=== PATIENT | male | born 1990 | race Caucasian/White ===

== ENCOUNTER → 2021-04-03 | Outpatient (CLI) | payer BC, SELFPAY | END | disposition home or self-care (01) | PROVIDERS: PCP Preventive Medicine Occupational Medicine; Visit Provider Physician Assistant Medical | DX: Z11.52 Encounter for screening for COVID-19 (principal) | CPT/HCPCS: 87635; U0003; U0005 ==

== ENCOUNTER → 2025-03-14 | Outpatient (CLI) | payer BC, SELFPAY ==
[2025-03-14 16:51] LABS: Glucose, Dipstick Normal (Normal); Ketone-Dipstick Negative (Negative); Leukocyte Esterase-Dipstick Negative /ul (Negative); Nitrite-Dipstick Negative (Negative); Occult Blood-Urine Negative /ul (Negative); Protein-Dipstick Negative (Negative); Specific Gravity, Urine 1.010 (1.002-1.030); Urine Bilirubin Dipstick Negative (Negative)
[2025-03-14 16:54] LABS: Color, Urine Straw (Yellow)
[2025-03-14 16:58] LABS: Hematocrit 49.0 % (40-54); Hemoglobin 16.4 g/dL (13.0-16.5); Immature Granulocytes Count 0.030 X10^3/uL (0.0-0.0); Mean Corp Hgb Conc 33.5 g/dL (32-36); Mean Corpuscular Volume 86.9 fL (80-94); Mean Platelet Vol. 9.2 fl (6.2-12.0); NRBC Flagged by Analyzer 0 % (0-5); Platelet Count 244 K/mm3 (150-450); RBC Distribution Width CV 12.2 % (11.6-14.6); RBC Distribution Width SD 38.7 fl (35.1-43.9); Red Blood Count 5.64 M/mm3 (4.6-6.2); White Blood Count 6.7 K/mm3 (4.4-11.0)
[2025-03-14 17:30] LABS: AST(SGOT) 26 U/L (<=37); Alanine Aminotransfer ALT/SGPT 31 U/L (<=46); Albumin, Serum 5.0 g/dL (3.5-5.0); Alkaline Phosphatase 63 U/L (40-129); Anion Gap 13 (5-15); BUN 18 mg/dL (4-19); BUN/Creat Ratio 18.0 RATIO (10-20); Calcium,Total 10.3 mg/dL (7.6-11.0); Carbon Dioxide 25.1 mmol/L (21.0-32.0); Chloride 102 mmol/L (98-108); Cholesterol 201 mg/dL (<=200); Globulin 2.8 g/dL (2.2-4.2); Glucose 98 mg/dL (70-99); Low Density Lipoprotein Calc. 136 mg/dL; Magnesium 2.5 mg/dL (1.5-2.2); Potassium 4.4 mmol/L (3.3-5.1); T4 Total, Thyroxin 8.3 ug/dL (4.5-12.1); Triglycerides 108 mg/dL; Very Low Density Lipoprotein 22 mg/dL (5-40); Vitamin B12 941 pg/mL (180-914); Vitamin D,25 Hydroxy 42.5 ng/mL (30-100); cholesterol:hdl ratio screen 4.40
== END | disposition home or self-care (01) ==
PROVIDERS: PCP Nurse Practitioner Family; Referring Provider Nurse Practitioner Family; Visit Provider Nurse Practitioner Family
DX: Z00.00 Encounter for general adult medical examination without abnormal findings (principal); F41.1 Generalized anxiety disorder
CPT/HCPCS: 36415; 80053; 80061; 81002; 82306; 82607; 83735; 84436; 84443; 85025; 86376; 86800

== ENCOUNTER → 2025-03-19 | Outpatient (CLI) | payer BC, SELFPAY ==
--- NOTE | 2025-03-19 07:26 | EKG12_ITS ---
Test Reason : PALPS Blood Pressure : */* mmHG Vent. Rate : 63 BPM Atrial Rate : 63 BPM P-R Int : 150 ms QRS Dur : 86 ms QT Int : 402 ms P-R-T Axes : 57 73 56 degrees QTcB Int : 411 ms Normal sinus rhythm Normal ECG Confirmed by JAZ HILLMAN, RUBEN ([id number]), commercial production editor VÍCTOR FERRER ([id number]) on 03/20/2025 1:29:12 PM Referred By: Praneeth Torres Confirmed By: RUBEN SEBASTIAN MD
--- OUTSIDE RECORDS SUMMARY | 2025-03-19 07:43 | XMS RPT_ITS | CCD ---
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 Name Role Phone Niko Barboza MD Primary Care Provider Ezekiel Portillo Referring Unavailable Ezekiel Portillo Primary Care Unavailable Jeffrey Valencia Attending Unavailable RENETTA HIGGINS Attending Unavailable NIKO BARBOZA Primary Care Unavailab Niko Courtney MD Primary Care Provider Medications Current Medications Medication Drug Class(es) Dates Sig (Normalized) Sig (Original) sertraline 50 mg oral tablet (7 sources) Serotonin Reuptake Inhibitor Start: 06-15-2022 End: 09-30-2022 take 1 tablet by mouth once daily sertraline (ZOLOFT) 50 mg tablet Indications: Anxiety with depression Take 1 tablet by mouth once daily. 90 tablet 0 06/15/2022 09/30/2022 Discontinued (Course of therapy completed) Start: 04-08-2021 End: 06-12-2022 take 1 tablet by mouth once daily sertraline (ZOLOFT) 50 mg tablet Indications: Anxiety with depression Take 1 tablet by mouth once daily. 90 tablet 3 09/26/2021 06/12/2022 Discontinued Comment on above: Take 1 tablet by edita th once daily. Problems Problem Classification Problem Date Documented Da te Episodic/Chronic Anxiety disorders (4 sources) Mixed anxiety and depressive disorder; Translations: [Other specified anxiety disorders] Chronic Hemorrhoids (1 source) External hemorrhoids; Translations: [Residual hemorrhoidal skin tags] 01-13-2024 Episodic Malaise and fatigue (1 source) Fatigue; Translations: [Other fatigue] Episodic Results Test Name Value Interpretation Reference Range Facil ity CNOVon 01-13-2024 CNOV Office Visit (FAMPWS ) JACOB VILLA ([id number]) 1990 M Date Time Provider Department 01/13/24 8:00 AM RENETTA HIGGINS During your visit today, we recorded the following information about you: Pulse Respiration Blood pressure Weight 75/minute 14/minute 147/77 83 kg Renetta Higgins APRN.LABOR MEDIATOR 01/13/2024 8:20 AM Signed Chief Complaint Patient presents with: Rectal Problem: X 1 week HPI Jacob Villa is a 33 year old male who presents here today for Above Complaints.. Patient presents for concerns for hemorrhoid. Patient reports he has changed his diet in the past couple of months and about a week ago began having rectal pain and when he wipes he can feel a hard spot that is tender. Patient reports he started using OTC cream yesterday. Past medical history, appointments, medications, allergies reviewed. Previous Medical History PAST MEDICAL HISTORY Diagnosis Date Left ACL tear 2007 s/p repair Previous Surgical History PAST SURGICAL HISTORY Procedure Laterality Date PAST SURGICAL HISTORY OF Left 2007 ACL removal and repair Family History FAMILY HISTORY Problem Relation Age of Onset Depression Father Coronary Artery Disease Paternal Grandfather [place] age 39 Diabetes Maternal Grandfather Patient Allergies ALLERGIES No Known Allergies Current Medications No current outpatient medications on file prior to visit. No current facility-administered medications on file prior to visit. Social History Social History Tobacco Use Smoking status: Never Smokeless tobacco: Never Vaping Use Vaping status: Never Used Substance Use Topics Alcohol use: Yes Alcohol/week: 2.0 standard drinks of alcohol Types: 2 Cans of Beer (12oz) per week Drug use: No Review of Symptoms REVIEW OF SYSTEMS SEE HPI EXAM: BP 147/77 Pulse 75 Resp 14 Wt 83 kg (183 lb) BMI 26.20 kg/m? General Appearance: Well appearing, alert, in no acute distress, well-hydrated, well nourished.. Rectal: Positive findings: thrombosed external hemorrhoid. The sensitive examination was discussed with the Patient or Patient's Authorized Discovery Manager. As applicable, any other physician, advance practice provider, medical student, or other health professional student that will be observing or involved in the sensitive examination for educational or training purposes was discussed with the Patient or Authorized Discovery Manager. The Patient or Authorized Discovery Manager has agreed to proceed with the sensitive examination. (Sensitive examination includes inspection and/or palpation of the breasts, pelvis, prostate and anorectal regions) Health Maintenance List Depression Screening Never done Anxiety Screening Never done Hepatitis C Screening Never done HIV Screening Never done Influenza Vaccine(1) due on 12/05/2023 Covid-19 Vaccine( - season) due on 12/05/2023 DTaP,Tdap,Td Vaccine(7 - Td or Tdap) due on 11/05/2024 Hepatitis B Vaccine Completed HPV Vaccine Aged Out ASSESSMENT/PLAN: 1. External hemorrhoid - ICD9: 455.3, ICD10: K64.4 -Encouraged patient to use preparation H and witch kriss pads. Return if no improvement or if hemorrhoid becomes larger or is bleeding. Renetta Higgins, LUISA.LABOR MEDIATOR Allergies As of Date: 01/13/2024 (No Known Allergies) Date Reviewed: 01/13/2024 Reviewed by: Heidy Glez MA - Fully Assessed Reason for Visit: Rectal Problem [93] Cmt: X 1 week Primary Visit Diagnosis:External hemorrhoid [K64.4] Problem List As Of Date: 01/13/2024 (None) Encounter Status:Closed by RENETTA HIGGINS on 01/13/24 Normal [facility] Visit Reporton 0 05-20-2023 Urgent Care Visit Report [facility] [address], [address] [place] [address] OFFICE VISIT Date of Service: 05/20/23 MR#: [id number] Acct: [id number] Name: JACOB VILLA Rep #: [id number] : 1990 Provider: MACIEL Merida Age/Sex: 32/M Location: [facility] [place] Status: Signed Intake Vital Signs 03/27/21 09:35 05/20/23 09:07 Height 5 ft 11.5 in 5 ft 11 in Weight: 195 lb BMI 27.1 BP 142/96 H Blood Pressure Location Lt brachial Position Sitting Respiration 16 Pulse 89 Pulse Source Monitor Temp 97.5 F L Temp Source Temporal Pulse Oximetry (%) 99 Oxygen Delivery Method room air Intake Visit Reasons: SORE THROAT Chief Complaint: SORE THROAT Research Professional Required: No Accompanied by: Self Is patient in pain?: No Allergies No Known Allergies Allergy (Verified 05/20/23 09:07) Medications NK 05/20/23 [History Confirmed 05/20/23] PFSH Medical History COVID-19 Social History Smoking Status: Unknown if ever smoked HPI HPI Chief Complaint: SORE THROAT Details: JACOB VILLA, is a 32 M who presents to the office today for complaint of sore throat for the past 2 days. Patient does state that his and daughter both are currently being treated for strep at home. No fever, chills, sweats. No nausea, vomiting or diarrhea. No other associated symptoms or alleviating/aggravatin g factors. ROS Const Constitutional: No other (as above) Exam Const General: cooperative and healthy appearing [facility] Head: normal to inspection Ears: hearing grossly normal bilaterally, TM's normal bilaterally and EAC's normal Nose: external nose normal and nasal discharge clear Mouth: oral mucosae normal Throat: abnormal tonsil bilaterally Resp Effort Inspection: normal respiratory effort Auscultation: Bilateral: Clear to Auscultation Cardio Palpation: normal PMI Rate: regular rate Rhythm: regular rhythm Neuro General: patient alert and CN's II-XI intact bilaterally Psych Appearance: grossly normal Mental Status: mental status grossly normal Coding Level of Care Code Off vis,est,level 3 Diagnoses Acute pharyngitis J02.9 Assessment and Plan Assessment and Plan (1) Acute pharyngitis: Status: Acute Plan: Patient tested negative for strep in the office today using [facility] strep testing. Encouraged to get plenty of rest, drink lots of clear liquids, and use Tylenol or Ibuprofen (unless contraindicated) for fever and comfort. Patient also educated on other symptomatic management techniques. To be seen in 7-10 days if no improvement; sooner if worsening of symptoms. Patient advised of potential red flags and when appropriate to report to the ED. Patient verbalized understanding and agreement with all the above. Orders: Orders POC [facility] Rapid Strep A Today 05/20/23928 Date Jeffrey Mcguire Signature: Date (if applicable) CC: Normal [facility] Vital Signs Date Time Vital Sign Value Performing Clinician Faci lity 01-13-2024 08:03-0400 Body mass index (BMI) [Ratio] 26.2 kg/m2 Renetta Higgins APRN.LABOR MEDIATOR Work Phone: [facility] 01-13-2024 08:03-0400 Body weight 83.01 kg Renetta Higgins APRN.LABOR MEDIATOR Work Phone: [facility] 01-13-2024 08:03-0400 Diastolic blood pressure 77 mm[Hg] Renetta Higgins SUPERVISOR DIALS.LABOR MEDIATOR Work Phone: [facility] 01-13-2024 08:03-0400 Heart rate 75 /min Renetta Higgins SUPERVISOR DIALS.LABOR MEDIATOR Work Phone: [facility] 01-13-2024 08:03-0400 Respiratory rate 14 /min Renetta Higgins SUPERVISOR DIALS.LABOR MEDIATOR Work Phone: [facility] 01-13-2024 08:03-0400 Systolic blood pressure 147 mm[Hg] Renetta Higgins SUPERVISOR DIALS.LABOR MEDIATOR Work Phone: [facility] 09-30-2022 07:43-0400 Body height 178 cm Jennifer Vizcarra SUPERVISOR DIALS.LABOR MEDIATOR Work Phone: [facility] 09-30-2022 07:43-0400 Body weight 89.99 kg Jennifer Vizcarra SUPERVISOR DIALS.LABOR MEDIATOR Work Phone: [facility] 09-30-2022 07:43-0400 Diastolic blood pressure 80 mm[Hg] Jennifer Vizcarra SUPERVISOR DIALS.LABOR MEDIATOR Work Phone: [facility] 09-30-2022 07:43-0400 Heart rate 55 /min Jennifer Podlogar SUPERVISOR DIALS.LABOR MEDIATOR Work Phone: [facility] 09-30-2022 07:43-0400 Respiratory rate 16 /min Jennifer Podlogar SUPERVISOR DIALS.LABOR MEDIATOR Work Phone: [facility] 09-30-2022 07:43-0400 SaO2% (BldA) [Mass fraction] 99 % Jennifer Podlogar SUPERVISOR DIALS.LABOR MEDIATOR Work Phone: [facility] 09-30-2022 07:43-0400 Systolic blood pressure 116 mm[Hg] Jennifer Podlogar SUPERVISOR DIALS.LABOR MEDIATOR Work Phone: [facility] 09-26-2021 08:48-0400 Body weight 86.27 kg Jennifer Podlogar SUPERVISOR DIALS.LABOR MEDIATOR Work Phone: [facility] 09-26-2021 08:48-0400 Diastolic blood pressure 76 mm[Hg] Jennifer Podlogar SUPERVISOR DIALS.LABOR MEDIATOR Work Phone: [facility] 09-26-2021 08:48-0400 Heart rate 60 /min Jennifer Podlogar SUPERVISOR DIALS.LABOR MEDIATOR Work Phone: [facility] 09-26-2021 08:48-0400 Respiratory rate 18 /min Jennifer Podlogar SUPERVISOR DIALS.LABOR MEDIATOR Work Phone: [facility] 09-26-2021 08:48-0400 SaO2% (BldA) [Mass fraction] 98 % Jennifer Podlogar SUPERVISOR DIALS.LABOR MEDIATOR Work Phone: [facility] 09-26-2021 08:48-0400 Systolic blood pressure 124 mm[Hg] Jennifer Podlogar SUPERVISOR DIALS.LABOR MEDIATOR Work Phone: [facility] Encounters Encounter Date Encounter Type Care Provider Facility Start: 01-13-2024 End: 01-13-2024 ambulatory RENETTA HIGGINS Facility:[facility] Start: 01-13-2024 End: 01-13-2024 Patient encounter procedure Renetta Higgins SUPERVISOR DIALS.LABOR MEDIATOR Work Phone: [facility] Comment on above: External hemorrhoid (Primary Dx) Start: 05-20-2023 End: 05-20-2023 ambulatory [facility] Facility:[facility] Start: 09-30-2022 End: 09-30-2022 Patient encounter procedure Jennifer Podlogar SUPERVISOR DIALS.FRANCES Work Phone: [facility] Comment on above: Annual physical exam (Primary Dx); Fatigue, unspecified type; Anxiety with depression Start: 06-12-2022 ambulatory Jennifer Podlogar SUPERVISOR DIALS.LABOR MEDIATOR Work Phone: [facility] Comment on above: medication Start: 09-26-2021 End: 09-26-2021 Patient encounter procedure Jennifer Podlogar SUPERVISOR DIALS.LABOR MEDIATOR Work Phone: [facility] Comment on above: Anxiety with depress ion Start: 07-24-2021 Refill Jennifer Podlogar SUPERVISOR DIALS.FRANCES Work Phone: [facility] Comment on above: Refill Request Procedures Date Procedure Procedure Detail Performing Clinician Start: 09-25-2021 Adult depression screening assessment Jennifer Podlogar SUPERVISOR DIALS.FRANCES Work Phone: Start: 03-24-2021 Adult depression screening assessment Jennifer Podlogar SUPERVISOR DIALS.LABOR MEDIATOR Work Phone: Plan of Treatment Date Care Activity Detail Author Start: 11-05-2024 Urine microalbumin profile DTaP,Tdap,Td Vaccine (7 - Td or Tdap) [facility] Start: 12-05-2023 Covid-19 Vaccine ( season) Covid-19 Vaccine ( season) [facility] Start: 12-05-2023 Influenza vaccination Influenza Vacc ine (#1) [facility] Start: 10-01-2023 COVID-19 VACCINE (3 - Booster for Pfizer series) COVID-19 VACCINE (3 - Booster for Pfizer series) [facility] Comment on above: Postponed from 02/17 (Declined at this time) Start: 10-01-2023 HEPATITIS C SCREENING HEPATITIS C AK GERTRUDE [facility] Comment on above: Postponed from 10/28 (Declined at this time) Start: 10-01-2023 HIV SCREENING HIV SCREENING [facility] Comment on above: Postponed from 10/28 (Declined at this time) Start: 12-04-2022 Influenza vaccination INFLUENZ A (Season Ended) [facility] Start: 09-30-2022 End: 11-30-2022 CBC W Auto Differential panel - Blood CBC + DIFF Lab Routine Annual physical exam Expected: 09/30/2022, Expires: 11/30/2022 [facility] Work Phone: Comment on above: Expected: 09/30/2022 , Expires: 11/30/2022 Start: 09-30-2022 End: 11-30-2022 Comprehensive metabolic 2000 panel - Serum or Plasma COMP METABOLIC PANEL Lab Routine Annual physical exam Expected: 09/30/2022, Expires: 11/30/2022 [facility] Work Phone: Comment on above: Expected: 09/30/2022 , Expires: 11/30/2022 Start: 09-30-2022 End: 11-30-2022 Lipid 1996 panel - Serum or Plasma LIPID PANEL BASIC Lab Routine Annual physical exam Expected: 09/30/2022, Expires: 11/30/2022 [facility] Work Phone: Comment on above: Expected: 09/30/2022 , Expires: 11/30/2022 Start: 09-30-2022 End: 11-30-2022 Thyrotropin [Units/volume] in Serum or Plasma TSH BLD Lab Routine Fatigue, unspecified type Expected: 09/30/2022, Expires: 11/30/2022 [facility] Work Phone: Comment on above: Expected: 09/30/2022 , Expires: 11/30/2022 Start: 09-25-2022 Adult depression screening assessment DEPRESSION SCREENING [facility] Start: 04-05-2022 DEPRESSION ASSESSMENT DEPRESSION ASS ESSMENT [facility] Start: 03-24-2022 Adult depression screening assessment DEPRESSION SCREENING [facility] Start: 12-04-2021 Influenza vaccination C [facility] Start: 05-25-2021 COVID-19 VACCINE (3 - Booster for Pfizer series) COVID-19 VACCINE (3 - Booster for Pfizer series) [facility] Start: 02-17-2021 COVID-19 VACCINE (3 - Booster for Pfizer series) COVID-19 VACCINE (3 - Booster for Pfizer series) [facility] Start: 2008 Urine microalbumin profile DTAP,TDAP,TD (1 - Tdap) [facility] Start: 10-29-2007 Anxiety Screening Anxiety Screening [facility] Start: 10-29-2007 Depression Screening Depression Scre ening [facility] Start: 10-29-2007 HEPATITIS C SCREENING HEPATITIS C [facility] Start: 10-29-2007 Hepatitis C screening Hepatitis C [facility] Start: 10-29-2007 HIV SCREENING HIV SCREENING [facility] Start: 10-29-2007 HIV screening HIV Screening [facility] Start: 1990 HEPATITIS B (1 of 3 - 3-dose series) HEPATITIS B (1 of 3 - 3-dose series) [facility] Immunizations Immunization Date Immunization Notes Care Provider Edmundo camilo 12-23-2020 COVID-19 vaccine, ag e 12+ yr (PFIZER-BIONTECH - PURPLE TOP) Jennifer Podlogar SUPERVISOR DIALS.[facility] Work Phone: [facility] 12-02-2020 COVID-19 vaccine, ag e 12+ yr (PFIZER-BIONTECH - PURPLE TOP) Jennifer Podlogar SUPERVISOR DIALS.LABOR MEDIATOR Work Phone: [facility] 02-10-2020 influenza, injectabl e, quadrivalent, contains preservative Jennifer Podlogar SUPERVISOR DIALS.LABOR MEDIATOR Work Phone: [facility] Work Phone: 02-10-2020 influenza virus vacc ine, unspecified formulation Renetta Higgins SUPERVISOR DIALS.LABOR MEDIATOR Work Phone: [facility] 01-25-2019 influenza virus vacc ine, unspecified formulation Jennifer Podlogar SUPERVISOR DIALS.LABOR MEDIATOR Work Phone: [facility] 02-10-2018 influenza, injectabl e, quadrivalent, preservative free Jennifer Podlogar SUPERVISOR DIALS.LABOR MEDIATOR Work Phone: [facility] 01-26-2009 influenza virus vacc ine, unspecified formulation Jennifer Vizcarra SUPERVISOR DIALS.FRANCES Work Phone: [facility] 11-16-2008 meningococcal polysaccharide vaccine (MPSV4) Jennifer Vizcarra APRN.FRANCES Work Phone: [facility] 11-16-2008 tuberculin skin test ; purified protein derivative solution, intradermal Renetta Higgins APRN.FRANCES Work Phone: [facility] Payers Date Payer Category Payer Self-pay 2023 Unknown [id number] 2020 Unknown ANTHEM BLUE CARD PPO OOS [id number] 2020-Present [phone] [address] [place] [address] PPO [id number] 2020 Unknown ANTHEM BLUE CARD PPO OOS [id number] 2020-Present [phone] [address] [place] [address] PPO [id number] 2020 Unknown [id number] Unknown [id number] Social History Date Type Detail Facility Start: 01-22-2017 End: 09-30-2022 Tobacco smoking status INIS Never smoked tobacco [facility] Start: 02-28-2020 End: 09-30-2022 Alcohol intake Current drinker of alcohol (finding) [facility] Start: 02-28-2020 End: 03-10-2020 Alcohol intake [facility] Start: 03-24-2021 End: 09-29-2022 History SDOH Alcohol Frequency 2 [facility] Start: 03-24-2021 End: 09-29-2022 History SDOH Alcohol Std Drinks 1 [facility] Start: 03-24-2021 End: 09-29-2022 History SDOH Social Connections Jew 3 [facility] Start: 03-24-2021 End: 09-29-2022 History SDOH Financial 5 [facility] Start: 04-06-2019 Education 17 [facility] Start: 1990 Sex Assigned At Male [facility] Work Phone: Start: 01-22-2017 End: 09-30-2022 Tobacco use and exposure Smokeless tobacco non-user [facility] Work Phone: Start: 09-29-2022 History SDOH Alcohol Std Drinks 0 [facility] Start: 03-10-2020 End: 09-29-2022 Social connection and isolation panel [facility] Do you belong to any clubs or organizations such as lutheran groups, unions, fraternal or athletic groups, or school groups? No [facility] Are you now , , , , never or living with a partner? [facility] How often to you hav e a drink containing alcohol? Monthly or less [facility] How many standard dr inks containing alcohol do you have on a typical day? Patient does not drink [facility] How often do you hav e 6 or more drinks on 1 occasion? Never [facility] Do you feel stress - tense, restless, nervous, or anxious, or unable to sleep at night because your mind is troubled all the time - these days [OSQ] To some extent [facility] (I/We) worried whedemarcus er (my/our) food would run out before (I/we) got money to buy more. Never true [facility] Start: 04-06-2019 Gender identity Identifies as male gender (finding) [facility] Start: 04-06-2019 Sexual orientation Heterosexual (finding) [facility] Clinical Notes 07-24-2021 to 01-13-2024 Renetta Higgins APRN.CNP - 01/13/2024 8:07 AM MARITZATJuerik Vizcarra APRN.CNP - 09/30/2022 7:26 AM EDTTelephone Encounter - Iqra Meehan LPN - 06/12/2022 10:19 AM EST Note Date & Type Note Facility 01-13-2024 Note HNO ID: [id number] Author: RENETTA HIGGINS APRN.CNP Service: ? Author Type: Nurse Practitioner Type: Progress Notes Filed: 01/13/2024 08:20 Note Text: Chief Complaint Patient presents with: Rectal Problem: X 1 week HPI Jacob Villa is a 33 year old male who presents here today for Above Complaints.. Patient presents for concerns for hemorrhoid. Patient reports he has changed his diet in the past couple of months and about a week ago began having rectal pain and when he wipes he can feel a hard spot that is tender. Patient reports he started using OTC cream yesterday. Past medical history, appointments, medications, allergies reviewed. Previous Medical History PAST MEDICAL HISTORY Diagnosis Date Left ACL tear 2007 s/p repair Previous Surgical History PAST SURGICAL HISTORY Procedure Laterality Date PAST SURGICAL HISTORY OF Left 2008 ACL removal and repair Family History FAMILY HISTORY Problem Relation Age of Onset Depression Father Coronary Artery Disease Paternal Grandfather [place] age 39 Diabetes Maternal Grandfather Patient Allergies ALLERGIES No Known Allergies Current Medications No current outpatient medications on file prior to visit. No current facility-administered medications on file prior to visit. Social History Social History Tobacco Use Smoking status: Never Smokeless tobacco: Never Vaping Use Vaping status: Never Used Substance Use Topics Alcohol use: Yes Alcohol/week: 2.0 standard drinks of alcohol Types: 2 Cans of Beer (12oz) per week Drug use: No Review of Symptoms REVIEW OF SYSTEMS SEE HPI EXAM: BP 147/77 Pulse 75 Resp 14 Wt 83 kg (183 lb) BMI 26.20 kg/m? General Appearance: Well appearing, alert, in no acute distress, well-hydrated, well nourished.. Rectal: Positive findings: thrombosed external hemorrhoid. The sensitive examination was discussed with the Patient or Patient's Authorized Discovery Manager. As applicable, any other physician, advance practice provider, medical student, or other health professional student that will be observing or involved in the sensitive examination for educational or training purposes was discussed with the Patient or Authorized Discovery Manager. The Patient or Authorized Discovery Manager has agreed to proceed with the sensitive examination. (Sensitive examination includes inspection and/or palpation of the breasts, pelvis, prostate and anorectal regions) Health Maintenance List Depression Screening Never done Anxiety Screening Never done Hepatitis C Screening Never done HIV Screening Never done Influenza Vaccine(1) due on 12/05/2023 Covid-19 Vaccine( season) due on 12/05/2023 DTaP,Tdap,Td Vaccine(7 - Td or Tdap) due on 11/05/2024 Hepatitis B Vaccine Completed HPV Vaccine Aged Out ASSESSMENT/PLAN: 1. External hemorrhoid - ICD9: 455.3, ICD10: K64.4 -Encouraged patient to use preparation H and witch kriss pads. Return if no improvement or if hemorrhoid becomes larger or is bleeding. Renetta Higgins APRN.[facility] 01-13-2024 History of en t illness Narrative Chief Complaint Patient presents with: Rectal Problem: X 1 week HPI Jacob Villa is a 33 year old male who presents here today for Above Complaints.. Patient presents for concerns for hemorrhoid. Patient reports he has changed his diet in the past couple of months and about a week ago began having rectal pain and when he wipes he can feel a hard spot that is tender. Patient reports he started using OTC cream yesterday. Past medical history, appointments, medications, allergies reviewed. Previous Medical History PAST MEDICAL HISTORY Diagnosis Date Left ACL tear 2007 s/p repair Previous Surgical History PAST SURGICAL HISTORY Procedure Laterality Date PAST SURGICAL HISTORY OF Left 2007 ACL removal and repair Family History FAMILY HISTORY Problem Relation Age of Onset Depression Father Coronary Artery Disease Paternal Grandfather [place] age 39 Diabetes Maternal Grandfather Patient Allergies ALLERGIES No Known Allergies Current Medications No current outpatient medications on file prior to visit. No current facility-administered medications on file prior to visit. Social History Social History Tobacco Use Smoking status: Never Smokeless tobacco: Never Vaping Use Vaping status: Never Used Substance Use Topics Alcohol use: Yes Alcohol/week: 2.0 standard drinks of alcohol Types: 2 Cans of Beer (12oz) per week Drug use: No Review of Symptoms REVIEW OF SYSTEMS SEE HPI EXAM: BP 147/77 Pulse 75 Resp 14 Wt 83 kg (183 lb) BMI 26.20 kg/m General Appearance: Well appearing, alert, in no acute distress, well-hydrated, well nourished.. Rectal: Positive findings: thrombosed external hemorrhoid. The sensitive examination was discussed with the Patient or Patient's Authorized Discovery Manager. As applicable, any other physician, advance practice provider, medical student, or other health professional student that will be observing or involved in the sensitive examination for educational or training purposes was discussed with the Patient or Authorized Discovery Manager. The Patient or Authorized Discovery Manager has agreed to proceed with the sensitive examination. (Sensitive examination includes inspection and/or palpation of the breasts, pelvis, prostate and anorectal regions) Health Maintenance List Depression Screening Never done Anxiety Screening Never done Hepatitis C Screening Never done HIV Screening Never done Influenza Vaccine(1) due on 12/05/2023 Covid-19 Vaccine(3 - 2023- season) due on 12/05/2023 DTaP,Tdap,Td Vaccine(7 - Td or Tdap) due on 11/05/2024 Hepatitis B Vaccine Completed HPV Vaccine Aged Out ASSESSMENT/PLAN: 1. External hemorrhoid - ICD9: 455.3, ICD10: K64.4 -Encouraged patient to use preparation H and witch kriss pads. Return if no improvement or if hemorrhoid becomes larger or is bleeding. Renetta Higgins APRN.LABOR MEDIATOR documented in this encounter [facility] 09-30-2022 History of Presen t illness Narrative 09/30/2022 Patient presents with: annual physical SUBJECTIVE: This is a 31 year old that is here today for Above Complaints. Since last office visit has been in good health without ER visits or hospitalizations. No concerns today. Has been taking only 1/2 tablet of Zoloft. Would like to stop all together. Denies depressive symptoms, SI, HI or insomnia. Admits to some fatigue. told him he snored the other night. Can get drowsy in the afternoon and if takes a cat nap for 5 minutes feels better. Does not follow any specific diet or have an exercise regime. PAST MEDICAL HISTORY Diagnosis Date Left ACL tear 2007 s/p repair ALLERGIES Patient has no known allergies. MEDICATIONS Current Outpatient Medications Medication Sig sertraline (ZOLOFT) 50 mg tablet Take 1 tablet by mouth once daily. No current facility-administered medications for this visit. Medications and allergies reviewed by this provider. SOCIAL HISTORY Social History Tobacco Use Smoking status: Never Smokeless tobacco: Never Vaping Use Vaping Use: Never used Substance Use Topics Alcohol use: Yes Alcohol/week: 5.0 standard drinks Types: 2 Cans of Beer (12oz) per week Drug use: No REVIEW OF SYSTEMS GENERAL: No weight loss, malaise or fevers HEENT: Negative for frequent or significant headaches, No changes in hearing or vision, no nose bleeds or other nasal problems NECK: Negative for lumps, goiter, pain and significant neck swelling RESPIRATORY: Negative for cough, hemoptysis, wheezing, COPD, dyspnea or shortness of breath CARDIOVASCULAR: Negative for chest pain, leg swelling, hypertension, CHF or palpitations GI: No nausea, vomiting, or diarrhea : No history of dysuria, frequency or incontinence MUSCULOSKELETAL: Negative for joint pain or swelling, back pain or muscle pain SKIN: Negative for lesions, rash, and itching PSYCH: Negative for sleep disturbance, mood disorder and recent psychosocial stressors HEMATOLOGY/LYMPHOLOGY: Negative for prolonged bleeding, bruising easily or swollen nodes ENDOCRINE: Negative for cold or heat intolerance, polyuria, polydipsia and goiter NEURO: No history of headaches, syncope, paralysis, seizures or tremors All other reviewed and negative other than HPI. OBJECTIVE: BP 116/80 Pulse (!) 55 Resp 16 Ht 178 cm (5' 10.08) Wt 90 kg (198 lb 6.4 oz) SpO2 99% BMI 28.40 kg/m . Vital signs reviewed by this provider. APPEARANCE Well appearing, alert, in no acute distress, well-hydrated, well nourished. EYES PERRLA, conjunctiva and sclera normal. EARS External ears normal, canals clear NECK Supple, no adenopathy; thyroid symmetric, normal size, no bruits HEART RRR with normal S1 and S2, no murmurs, no gallops, no JVD appreciated LUNG clear to auscultation. No wheezes, rhonchi or rales ABDOMEN bowel sounds normoactive, no bruits, soft, non-tender, non-distended EXTREMITIES Extremities normal, No deformities, No skin discoloration, and No edema SKIN Skin color, texture, turgor normal, no suspicious rashes or lesions to exposed skin HEPATITIS B(1 of 3 - 3-dose series) Never done DTAP,TDAP,TD(1 - Tdap) Never done DEPRESSION ASSESSMENT Never done HEPATITIS C SCREENING due on 10/01/2023 HIV SCREENING due on 10/01/2023 COVID-19 VACCINE(3 - Booster for Pfizer series) due on 10/01/2023 INFLUENZA(Season Ended) due on 12/04/2022 ASSESSMENT/PLAN: 1. Annual physical exam - ICD9: V70.0, ICD10: Z00.00 (primary diagnosis) - Counseled on healthy diet and regular exercise - Discussed need for and benefit of weight loss. BMI 28.40 kg/(m^2) - Depression screening tool completed and reviewed with patient. Based on score and interview, patient is already diagnosed with depression and recommended no further intervention at this time. - Follow up for annual exam in one year - COMP METABOLIC PANEL - LIPID PANEL BASIC - CBC + DIFF 2. Fatigue, unspecified type - ICD9: 780.79, ICD10: R53.83 - could consider sleep apnea with his snoring however just told him this the other night - discussed home sleep test-patient will think about it and if would like to proceed will let us know - TSH BLD 3. Anxiety with depression - ICD9: 300.4, ICD10: F41.8 -may stop Zoloft - discussed monitoring for reemerging depressive symptoms- if develops return to office Jennifer Vizcarra APRN.LABOR MEDIATOR Prescription instructions reviewed with patient as applicable. Patient advised if symptoms do not improve or if symptoms worsen sooner, to contact their primary care physician. Potential red flag symptoms discussed with the patient. Reviewed appropriate action plan to take if red flag symptoms occur. Patient agreeable to treatment plan. documented in this encounter [facility] 06-12-2022 Miscellaneous Notes Formattin g of this note is different from the original. Patient phones requesting refills as follows: Requested Prescriptions Pending Prescriptions Disp Refills sertraline (ZOLOFT) 50 mg tablet 90 tablet 0 Sig: Take 1 tablet by mouth once daily. LYLA 09/26/21 NOV no upcoming appt noted Please review and advise. Iqra Meehan LPN documented in this encounter [facility] 09-26-2021 History of Presen t illness Narrative 09/26/2021 Patient presents with: 6 Month Exam SUBJECTIVE: This is a 30 year old that is here today for Above Complaints. Taking Zoloft as prescribed. Tolerating without side effects. Overall feels good. Admits to sometimes feels tired and unmotivated, however he has two young children and he thinks it is contributed to this. Sleeps well most nights. Denies SI or HI PAST MEDICAL HISTORY Diagnosis Date Left ACL tear 2007 s/p repair ALLERGIES Patient has no known allergies. MEDICATIONS Current Outpatient Medications Medication Sig sertraline (ZOLOFT) 50 mg tablet Take 1 tablet by mouth once daily. No current facility-administered medications for this visit. Medications and allergies reviewed by this provider. SOCIAL HISTORY Social History Tobacco Use Smoking status: Never Smoker Smokeless tobacco: Never Used Vaping Use Vaping Use: Never used Substance Use Topics Alcohol use: Yes Alcohol/week: 5.0 standard drinks Types: 2 Cans of Beer (12oz) per week Drug use: No REVIEW OF SYSTEMS All other reviewed and negative other than HPI. OBJECTIVE: BP 124/76 Pulse 60 Resp 18 Wt 86.3 kg (190 lb 3.2 oz) SpO2 98% BMI 27.23 kg/m . Vital signs reviewed by this provider. APPEARANCE Well appearing, alert, in no acute distress, well-hydrated, well nourished. EYES PERRLA, conjunctiva and sclera normal. HEART RRR with normal S1 and S2, no murmurs, no gallops, no JVD appreciated LUNG clear to auscultation. No wheezes, rhonchi, or rales SKIN Skin color, texture, turgor normal, no suspicious rashes or lesions HEPATITIS C SCREENING Never done HIV SCREENING Never done DTAP,TDAP,TD(1 - Tdap) Never done COVID-19 VACCINE(3 - Booster for Pfizer series) due on 05/25/2021 INFLUENZA(Season Ended) due on 12/04/2021 DEPRESSION SCREENING due on 09/25/2022 ASSESSMENT/PLAN: 1. Anxiety with depression - ICD9: 300.4, ICD10: F41.8 - doing well on current regime - SERTRALINE 50 MG TABLET - follow-up yearly, sooner if needed Jennifer Vizcarra APRN.FRANCES documented in this encounter [facility] 07-24-2021 Miscellaneous Notes Patient phones requesting refills as follows: Pending Prescriptions Disp Refills SERTRALINE 50 MG TABLET 90 tablet 0 Sig: Take 1 tablet by mouth once daily. LEILANI: No LOV03/24/21 NOV 09/26/21 Please review and advise. Iqra Meehan LPN documented in this encounter [facility] Evaluation note Diagnosis Anxiety with depression [facility] Diagnosis Anxiety with depression [facility] Diagnosis Anxiety with depression [facility] Diagnosis Annual physical exam- Primary Routine general medical examination at a [facility] care facility Fatigue, unspecified type Anxiety with depression [facility] Diagnosis External hemorrhoid- Primary External hemorrhoids without mention of complication documented in this encounter [facility] Summary Purpose Family History No Family History Records FoundNo Family History Records Found Advance Directives No Advanced Directives Records FoundNo Advanced Directives Records Found Additional Source Comments Source Comments (unrecognize d section and content) In the event this informatio n is protected by the Federal Confidentiality of Alcohol and Drug Abuse Patient Records regulations: The Federal rules restrict any use of the information to criminally investigate or prosecute any alcohol or drug abuse patient.[facility] the event this information is protected by the Federal Confidentiality of Alcohol and Drug Abuse Patient Records regulations: The Federal rules restrict any use of the information to criminally investigate or prosecute any alcohol or drug abuse patient.[facility] the event this information is protected by the Federal Confidentiality of Alcohol and Drug Abuse Patient Records regulations: The Federal rules restrict any use of the information to criminally investigate or prosecute any alcohol or drug abuse patient.[facility] the event this information is protected by the Federal Confidentiality of Alcohol and Drug Abuse Patient Records regulations: The Federal rules restrict any use of the information to criminally investigate or prosecute any alcohol or drug abuse patient.[facility] the event this information is protected by the Federal Confidentiality of Alcohol and Drug Abuse Patient Records regulations: The Federal rules restrict any use of the information to criminally investigate or prosecute any alcohol or drug abuse patient.[facility] Reason for Visit (unrecogniz ed section and content) Reason Onset Date Comments Refill Request 07/24/2021 Reason Comments 6 Month Exam Reason Comments annual physical Reason Comments Rectal Problem X 1 week Care Teams (unrecognized sec tion and content) Waterproofing Mixer Relationship Specialty Start Date End Date Niko Barboza MD [address], [place] [id number] PCP - General Family Practice 01/28/17 Waterproofing Mixer Relationship Specialty Start Date End Date Niko Barboza MD [address], [place] [id number] PCP - General Family Practice 01/28/17 Waterproofing Mixer Relationship Specialty Start Date End Date Niko Barboza MD [address] [place] [id number] PCP - General Family Medicine 01/28/17 Waterproofing Mixer Relationship Specialty Start Date End Date Niko Barboza MD [address] [place] [address] PCP - General Family Medicine 01/28/17 Waterproofing Mixer Relationship Specialty Start Date End Date Niko Babroza MD [address] [place] [address] PCP - General Family Medicine 01/28/17 (unrecognized sect ion and content) No Status Records FoundNo Status Records Found INFORMATION SOURCE (unrecogn ized section and content) DATE CREATED AUTHOR 05/22/2023 [facility] DATE CREATED AUTHOR AUTHOR'S ORGANIZ ATION 01/15/2024 [facility] FOR RECORDS PERTAINING TO PATIENTS WHO ARE OR HAVE BEEN ENROLLED IN A CHEMICAL DEPENDENCY/SUBSTANCEABUSE PROGRAM, SOME INFORMATION MAY BE OMITTED. This clinical summary was aggregated from multiple sources. Caution should be exercised in using it in the provision of clinical care. This summary normalizes information from multiple sources, and as a consequence, information in this document may materially change the coding, format and clinical context of patient data. In addition, data may be omitted in some cases. CLINICAL DECISIONS SHOULD BE BASED ON THE PRIMARY CLINICAL RECORDS. [employer] [facility]. provides no warranty or guarantee of the accuracy or completeness of information in this document.
== END | disposition home or self-care (01) ==
PROVIDERS: PCP Nurse Practitioner Family; Referring Provider Nurse Practitioner Family; Visit Provider Nurse Practitioner Family
DX: R00.2 Palpitations (principal)
CPT/HCPCS: 93005